=== PATIENT | female | born 1990 | race Caucasian/White ===

== ENCOUNTER 2024-01-16 08:06 | Outpatient (CLI) | payer MEDICAID | END 2024-01-16 23:59 | disposition home or self-care (01) | LOC: RAD 08:06 | PROVIDERS: ATTEND Nurse Practitioner Obstetrics & Gynecology | DX: O09.41 Supervision of pregnancy with grand multiparity, first trimester (principal); Z3A.08 8 weeks gestation of pregnancy | CPT/HCPCS: 76801 ==

== ENCOUNTER 2024-11-16 19:37 | Emergency (ER) | payer MEDICAID, SELFPAY ==
[~2024-11-16] VITALS: Ht 149.9 cm; Wt 106.4 kg
[2024-11-16 19:39] VITALS: BP 121/83; PULSE 116; RESP 16; TEMP 98; O2SAT 97
[2024-11-16] MEDS: ondansetron 4mg rapidly disintigrating tab PO ONE (19:46)
[2024-11-16 20:27] LABS: BILIRUBIN,URINE NEGATIVE (Neg); CLARITY,URINE SLIGHTLY CLOUDY (Clear); COLOR,URINE YELLOW (Yellow); GLUCOSE, URINE NEGATIVE (Neg); KETONES,URINE NEGATIVE (Neg); LEUKOCYTE ESTERASE ,URINE NEGATIVE (Neg); NITRITES, URINE NEGATIVE (Neg); OCCULT BLOOD,URINE TRACE-INTACT (Neg); PROTEIN,URINE NEGATIVE (Neg); UROBILINOGEN,URINE 0.2 E.U/dL (0.2-1.0)
[2024-11-16 20:32] LABS: UA COLLECTION TYPE CLN CATCH MIDSTREAM
[2024-11-16 20:33] LABS: BACTERIA,URINE FEW /HPF (Neg); RBC,URINE 0-2 /HPF (0-2); SQUAMOUS EPITHELIAL CELL,UR MODERATE /LPF (FEW); WBC,URINE 0-4 /HPF (0-4)
[2024-11-16] MEDS ORDERED: ONDA-243 PO (21:18)
== END 2024-11-16 22:04 | disposition home or self-care (01) ==
LOC: ER 19:38
DX: A08.4 Viral intestinal infection, unspecified (principal); Z91.041 Radiographic dye allergy status
CPT/HCPCS: 81001; 99283